=== PATIENT | female | born 1975 | race Asian ===

== ENCOUNTER 2022-10-14 21:14 | Emergency (ER) | payer MEDICARE ==
[~2022-10-14] VITALS: Ht 170.2 cm; Wt 59.1 kg
[2022-10-14] MEDS ORDERED: CARB100 PO ×2 (21:29→23:36)
[2022-10-14] MEDS ORDERED: QUET200T PO ×2 (21:29→23:36)
[2022-10-14] MEDS ORDERED: CarBAMazepine 200 MG TABLET PO ONE (23:30)
[2022-10-14] MEDS ORDERED: QUEtiapine FUMARATE 100 MG TABLET PO ONE (23:30)
[2022-10-14 23:58] VITALS: BP 132/85
== END 2022-10-14 23:59 | disposition home or self-care (01) ==
LOC: EMS 21:19
DX: F41.9 Anxiety disorder, unspecified (principal); F32.A Depression, unspecified; Z76.0 Encounter for issue of repeat prescription; Z91.011 Allergy to milk products
CPT/HCPCS: 99283